=== PATIENT | male | born 1955 | race Caucasian/White ===

== ENCOUNTER → 2017-04-04 | Outpatient (CLI) | payer BC ==
[~2017-04-04] MED LIST: ASPIR-TRIN325 M1 PO; ATORVASTATIN CA10 MG PO; METAPROTERENOL PO; PRINIVIL20 MG PO; SERTRALINE HCL100 MG PO; TOLTERODINE TART4 MG PO
== END | disposition home or self-care (01) ==
LOC: NUC 13:30
DX: I42.9 Cardiomyopathy, unspecified (principal); Z95.1 Presence of aortocoronary bypass graft; Z87.891 Personal history of nicotine dependence; Z82.49 Family history of ischemic heart disease and other diseases of the circulatory system
CPT/HCPCS: 78472; A9512; A9560